=== PATIENT | female | born 1935 | race Caucasian/White ===

== ENCOUNTER 2016-05-01 10:58 | Emergency (ER) | payer OTHER ==
[~2016-05-01] VITALS: Ht 157.5 cm; Wt 68.0 kg
[~2016-05-01 10:58] MED LIST: FURO20TA3 PO; LIS10T PO; LOR05T PO; MET50T PO; OMEP20CA5 PO; THYR120T PO; WARF2TAB49 PO
[2016-05-01 11:39] LABS: Basophils # (auto) 0 uL; Basophils % (auto) 0.5 % (0.0-2.0); Eosinophils # (auto) 0.1 uL; Eosinophils % (auto) 2.7 % (0.0-7.0); Hematocrit 37.5 % (36.0-46.0); Hemoglobin 12.1 g/dL (12.2-16.2); Lymphocytes # (auto) 0.9 uL; Lymphocytes % (auto) 24.9 % (10.0-50.0); Mean Corpuscular Hemoglobin 29.5 pg (28.0-32.0); Mean Corpuscular Hgb Conc. 32.1 g/dL (32.0-36.0); Mean Corpuscular Volume 91.9 fL (80.0-100.0); Mean Platelet Volume 8.4 fL (7.4-10.4); Monocytes # (auto) 0.3 uL; Monocytes % (auto) 7.7 % (0.0-12.0); Neutrophils # (auto) 2.4 uL; Neutrophils % (auto) 64.2 % (37.0-80.0); Platelet Count (auto) 113 10^3/uL (140-450); Red Cell Distribution Width 14.2 % (11.6-16.0); White Blood Cell 3.7 10^3/uL (4.4-10.8)
[2016-05-01 11:45] LABS: Albumin 3.6 g/dL (3.4-5.0); BUN/Creatinine Ratio 45.3; Bilirubin, Total 0.4 mg/dL (0.2-1.0); Magnesium 2.3 mg/dL (1.6-2.6); Potassium 4.6 mmol/L (3.5-5.1); Total Protein 6.8 g/dL (6.4-8.2)
[2016-05-01 12:59] LABS: Partial Thromboplastin Time 30.1 sec (22.64-33.71)
[2016-05-01 13:08] LABS: INR 1.71 (0.9-1.15); Prothrombin Time 17.6 sec (9.37-12.3)
[2016-05-01 14:27] LABS: Urine Bilirubin Negative (Negative); Urine Blood Negative /uL (Negative); Urine Color Yellow (Yellow); Urine Glucose Normal (Normal); Urine Ketone Negative (Negative); Urine Mucus FEW (None Seen); Urine Nitrite Negative (Negative); Urine RBC 2 /hpf (0 - 4); Urine Squamous Epithelial Cell FEW /hpf (<5); Urine Urobilinogen Normal (Negative); Urine pH 6.5 (5.0-8.0)
[2016-05-01 16:38] VITALS: BP 110/57
== END 2016-05-01 17:03 | disposition short-term general hospital (02) ==
LOC: EDUNIT# 10:58 → ER 11:00
DX: T82.118A Breakdown (mechanical) of other cardiac electronic device, initial encounter (principal); R07.89 Other chest pain; I11.9 Hypertensive heart disease without heart failure; I50.9 Heart failure, unspecified; I48.91 Unspecified atrial fibrillation; K21.9 Gastro-esophageal reflux disease without esophagitis; E78.5 Hyperlipidemia, unspecified; Z86.73 Personal history of transient ischemic attack (TIA), and cerebral infarction without residual deficits; E07.9 Disorder of thyroid, unspecified; Z95.1 Presence of aortocoronary bypass graft; Z90.49 Acquired absence of other specified parts of digestive tract; Z90.89 Acquired absence of other organs; Z98.890 Other specified postprocedural states; Z90.710 Acquired absence of both cervix and uterus; Z98.61 Coronary angioplasty status; Z88.6 Allergy status to analgesic agent; Z88.3 Allergy status to other anti-infective agents; X58.XXXA Exposure to other specified factors, initial encounter; Y93.89 Activity, other specified; Y99.8 Other external cause status; Y92.89 Other specified places as the place of occurrence of the external cause
CPT/HCPCS: 36415; 70450; 71020; 80053; 81001; 83735; 84484; 85025; 85049; 85610; 85730; 93005; 94761

== ENCOUNTER 2016-05-15 04:29 | Emergency (ER) | payer OTHER ==
[~2016-05-15] VITALS: Ht 157.5 cm; Wt 70.3 kg
[2016-05-15 06:17] LABS: Basophils # (auto) 0 uL; Basophils % (auto) 0.3 % (0.0-2.0); Eosinophils # (auto) 0.1 uL; Eosinophils % (auto) 2.2 % (0.0-7.0); Hematocrit 34.4 % (36.0-46.0); Hemoglobin 10.9 g/dL (12.2-16.2); Lymphocytes # (auto) 0.9 uL; Lymphocytes % (auto) 21.1 % (10.0-50.0); Mean Corpuscular Hgb Conc. 31.7 g/dL (32.0-36.0); Mean Corpuscular Volume 91.6 fL (80.0-100.0); Mean Platelet Volume 8.9 fL (7.4-10.4); Monocytes # (auto) 0.3 uL; Monocytes % (auto) 6.5 % (0.0-12.0); Neutrophils # (auto) 3.1 uL; Neutrophils % (auto) 69.9 % (37.0-80.0); Platelet Count (auto) 128 10^3/uL (140-450); Red Cell Distribution Width 14.1 % (11.6-16.0); White Blood Cell 4.5 10^3/uL (4.4-10.8)
[2016-05-15 06:31] LABS: BUN/Creatinine Ratio 28.1; Calcium 8.7 mg/dL (8.5-10.1); Potassium 4.1 mmol/L (3.5-5.1)
[2016-05-15] MEDS ORDERED: SODIUM CHLORIDE 0.9% 1,000 ML IV ONE (06:33)
[2016-05-15 06:41] LABS: Partial Thromboplastin Time 34.7 sec (22.64-33.71)
[2016-05-15 06:49] LABS: INR 2.31 (0.9-1.15); Prothrombin Time 23.8 sec (9.37-12.3)
[2016-05-15 13:17] VITALS: BP 131/75
== END 2016-05-15 13:54 | disposition home or self-care (01) ==
LOC: ER 04:35
DX: R11.10 Vomiting, unspecified (principal); I48.91 Unspecified atrial fibrillation; R00.2 Palpitations; I25.810 Atherosclerosis of coronary artery bypass graft(s) without angina pectoris; I25.2 Old myocardial infarction; J44.9 Chronic obstructive pulmonary disease, unspecified; K21.9 Gastro-esophageal reflux disease without esophagitis; E78.5 Hyperlipidemia, unspecified; I13.0 Hypertensive heart and chronic kidney disease with heart failure and stage 1 through stage 4 chronic kidney disease, or unspecified chronic kidney disease; N18.9 Chronic kidney disease, unspecified; I50.9 Heart failure, unspecified; Z95.1 Presence of aortocoronary bypass graft; Z98.61 Coronary angioplasty status; Z95.0 Presence of cardiac pacemaker; Z79.899 Other long term (current) drug therapy; Z79.01 Long term (current) use of anticoagulants; Z88.6 Allergy status to analgesic agent; Z88.8 Allergy status to other drugs, medicaments and biological substances
CPT/HCPCS: 36415; 71010; 80048; 81002; 83735; 84443; 84484; 85025; 85610; 85730; 93005; 94761; 96360; 96361; 99285; J7030

== ENCOUNTER 2016-06-24 06:40 | Emergency (ER) | payer OTHER ==
[~2016-06-24] VITALS: Ht 157.5 cm; Wt 71.7 kg
[2016-06-24 07:51] LABS: Basophils # (auto) 0 uL; Basophils % (auto) 0.6 % (0.0-2.0); Eosinophils # (auto) 0.1 uL; Hematocrit 34.6 % (36.0-46.0); Hemoglobin 11.6 g/dL (12.2-16.2); Lymphocytes # (auto) 0.9 uL; Lymphocytes % (auto) 23.1 % (10.0-50.0); Mean Corpuscular Hemoglobin 30.2 pg (28.0-32.0); Mean Corpuscular Hgb Conc. 33.4 g/dL (32.0-36.0); Mean Corpuscular Volume 90.4 fL (80.0-100.0); Mean Platelet Volume 8.6 fL (7.4-10.4); Monocytes # (auto) 0.3 uL; Monocytes % (auto) 7.9 % (0.0-12.0); Neutrophils # (auto) 2.4 uL; Neutrophils % (auto) 65.4 % (37.0-80.0); Platelet Count (auto) 121 10^3/uL (140-450); Red Cell Distribution Width 15.2 % (11.6-16.0); White Blood Cell 3.7 10^3/uL (4.4-10.8)
[2016-06-24 08:04] LABS: Albumin 3.6 g/dL (3.4-5.0); Anion Gap 9 (5-15); Aspartate Aminotransferase 19 U/L (15-37); BUN/Creatinine Ratio 38.2; Blood Urea Nitrogen 29 mg/dL (7-18); Calcium 8.8 mg/dL (8.5-10.1); Carbon Dioxide 26 mmol/L (21-32); Chloride 109 mmol/L (98-107); GFR African American 94 mL/min; GFR Non-African American 78 mL/min; Glucose 104 mg/dL (74-106); Magnesium 2.1 mg/dL (1.6-2.6); Potassium 3.9 mmol/L (3.5-5.1); Sodium 144 mmol/L (136-145)
[2016-06-24 08:09] LABS: Alkaline Phosphatase 46 U/L (45-117); Bilirubin, Total 0.5 mg/dL (0.2-1.0); Total Protein 6.7 g/dL (6.4-8.2)
[2016-06-24] MEDS ORDERED: METOPROLOL TARTRATE 1MG/1ML-5ML VIAL IV ONE (14:30)
[2016-06-24 14:59] LABS: Basophils # (auto) 0 uL; Basophils % (auto) 0.4 % (0.0-2.0); Eosinophils # (auto) 0.1 uL; Eosinophils % (auto) 2.1 % (0.0-7.0); Hemoglobin 12.5 g/dL (12.2-16.2); Lymphocytes # (auto) 1.2 uL; Lymphocytes % (auto) 27.1 % (10.0-50.0); Mean Corpuscular Hgb Conc. 32.8 g/dL (32.0-36.0); Mean Corpuscular Volume 91.4 fL (80.0-100.0); Mean Platelet Volume 8.5 fL (7.4-10.4); Monocytes # (auto) 0.3 uL; Monocytes % (auto) 6.9 % (0.0-12.0); Neutrophils # (auto) 2.7 uL; Neutrophils % (auto) 63.5 % (37.0-80.0); Platelet Count (auto) 130 10^3/uL (140-450); Red Cell Distribution Width 15.4 % (11.6-16.0); White Blood Cell 4.3 10^3/uL (4.4-10.8)
[2016-06-24 15:10] LABS: Chloride 107 mmol/L (98-107); Partial Thromboplastin Time 34.3 sec (22.64-33.71); Potassium 3.7 mmol/L (3.5-5.1); Sodium 139 mmol/L (136-145)
[2016-06-24 15:14] LABS: Anion Gap 4 (5-15); Aspartate Aminotransferase 16 U/L (15-37); BUN/Creatinine Ratio 34.3; Blood Urea Nitrogen 23 mg/dL (7-18); Calcium 8.9 mg/dL (8.5-10.1); Carbon Dioxide 28 mmol/L (21-32); GFR African American 109 mL/min; GFR Non-African American 90 mL/min; Glucose 122 mg/dL (74-106); Magnesium 2.1 mg/dL (1.6-2.6)
[2016-06-24 15:20] LABS: Alkaline Phosphatase 52 U/L (45-117); Bilirubin, Total 0.7 mg/dL (0.2-1.0); Total Protein 7.5 g/dL (6.4-8.2)
[2016-06-24 15:56] LABS: INR 2.51 (0.9-1.15); Prothrombin Time 25.9 sec (9.37-12.3)
[2016-06-24 16:16] VITALS: BP 114/72
[2016-06-24 17:02] LABS: B-Type Natriuretic Peptide 391.44 pg/mL (0-100)
== END 2016-06-24 17:20 | disposition home or self-care (01) ==
LOC: ER 06:40
DX: I48.2 Chronic atrial fibrillation (principal); I25.810 Atherosclerosis of coronary artery bypass graft(s) without angina pectoris; Z95.1 Presence of aortocoronary bypass graft; I11.0 Hypertensive heart disease with heart failure; I50.9 Heart failure, unspecified; J44.9 Chronic obstructive pulmonary disease, unspecified; K21.9 Gastro-esophageal reflux disease without esophagitis; E78.5 Hyperlipidemia, unspecified; I25.2 Old myocardial infarction; E07.9 Disorder of thyroid, unspecified; Z90.49 Acquired absence of other specified parts of digestive tract; Z90.710 Acquired absence of both cervix and uterus; Z95.0 Presence of cardiac pacemaker; Z98.61 Coronary angioplasty status; Z88.6 Allergy status to analgesic agent; Z88.8 Allergy status to other drugs, medicaments and biological substances; R53.83 Other fatigue
CPT/HCPCS: 36415; 71010; 71020; 80053; 80162; 83735; 83880; 84443; 84484; 85025; 85610; 85730; 93005; 96374

== ENCOUNTER 2016-07-04 09:01 | Emergency (ER) | payer OTHER ==
[~2016-07-04] VITALS: Ht 165.1 cm; Wt 63.5 kg
[2016-07-04] MEDS ORDERED: SODIUM CHLORIDE 0.9% 500 ML IVB ONE (09:19)
[2016-07-04 10:11] LABS: Albumin 3.5 g/dL (3.4-5.0); Alkaline Phosphatase 43 U/L (45-117); Anion Gap 9 (5-15); Aspartate Aminotransferase 18 U/L (15-37); BUN/Creatinine Ratio 35.6; Bilirubin, Total 0.5 mg/dL (0.2-1.0); Blood Urea Nitrogen 26 mg/dL (7-18); Calcium 8.8 mg/dL (8.5-10.1); Carbon Dioxide 29 mmol/L (21-32); Chloride 110 mmol/L (98-107); GFR African American 98 mL/min; GFR Non-African American 81 mL/min; Glucose 96 mg/dL (74-106); Potassium 3.8 mmol/L (3.5-5.1); Sodium 148 mmol/L (136-145); Total Protein 6.4 g/dL (6.4-8.2)
[2016-07-04 10:13] LABS: Basophils # (auto) 0 uL; Basophils % (auto) 0.5 % (0.0-2.0); Eosinophils # (auto) 0.1 uL; Eosinophils % (auto) 1.8 % (0.0-7.0); Hematocrit 34.4 % (36.0-46.0); Hemoglobin 11.3 g/dL (12.2-16.2); Lymphocytes # (auto) 0.8 uL; Lymphocytes % (auto) 22.2 % (10.0-50.0); Mean Corpuscular Hgb Conc. 32.9 g/dL (32.0-36.0); Mean Platelet Volume 8.7 fL (7.4-10.4); Monocytes # (auto) 0.3 uL; Neutrophils # (auto) 2.4 uL; Neutrophils % (auto) 66.5 % (37.0-80.0); Platelet Count (auto) 106 10^3/uL (140-450); Red Cell Distribution Width 15.1 % (11.6-16.0); White Blood Cell 3.6 10^3/uL (4.4-10.8)
[2016-07-04 10:25] LABS: Partial Thromboplastin Time 29.6 sec (22.64-33.71)
[2016-07-04 10:29] LABS: INR 1.82 (0.9-1.15); Prothrombin Time 18.7 sec (9.37-12.3)
[2016-07-04 11:02] LABS: Urine Bilirubin Negative (Negative); Urine Blood Negative /uL (Negative); Urine Color Yellow (Yellow); Urine Glucose Normal (Normal); Urine Ketone Negative (Negative); Urine Nitrite Negative (Negative); Urine RBC <1 /hpf (0 - 4); Urine Urobilinogen Normal (Negative); Urine pH 6.5 (5.0-8.0)
[2016-07-04 12:20] VITALS: BP 113/50
== END 2016-07-04 12:42 | disposition home or self-care (01) ==
LOC: EDBD 09:01 → ER 09:05
DX: R41.82 Altered mental status, unspecified (principal); N39.0 Urinary tract infection, site not specified; R11.0 Nausea; Z88.8 Allergy status to other drugs, medicaments and biological substances; I48.91 Unspecified atrial fibrillation; I25.810 Atherosclerosis of coronary artery bypass graft(s) without angina pectoris; I11.0 Hypertensive heart disease with heart failure; I50.9 Heart failure, unspecified; J44.9 Chronic obstructive pulmonary disease, unspecified; K21.9 Gastro-esophageal reflux disease without esophagitis; E78.5 Hyperlipidemia, unspecified; I25.2 Old myocardial infarction; E07.9 Disorder of thyroid, unspecified; Z95.0 Presence of cardiac pacemaker; Z87.442 Personal history of urinary calculi; Z95.1 Presence of aortocoronary bypass graft; Z90.710 Acquired absence of both cervix and uterus; Z98.61 Coronary angioplasty status
CPT/HCPCS: 36415; 70450; 71010; 80053; 81001; 83735; 84484; 85025; 85610; 85730; 93005; 94761; 96360; 99285; J7040

== ENCOUNTER 2016-07-06 06:04 | Observation (INO) | payer OTHER ==
[~2016-07-06] VITALS: Ht 172.7 cm; Wt 83.9 kg
[2016-07-06 07:02] LABS: Basophils # (auto) 0 uL; Basophils % (auto) 0.4 % (0.0-2.0); Eosinophils # (auto) 0.1 uL; Eosinophils % (auto) 2.1 % (0.0-7.0); Hematocrit 35.8 % (36.0-46.0); Lymphocytes # (auto) 0.6 uL; Lymphocytes % (auto) 21.2 % (10.0-50.0); Mean Corpuscular Hemoglobin 30.1 pg (28.0-32.0); Mean Corpuscular Hgb Conc. 33.5 g/dL (32.0-36.0); Mean Corpuscular Volume 89.9 fL (80.0-100.0); Mean Platelet Volume 8.5 fL (7.4-10.4); Monocytes # (auto) 0.3 uL; Monocytes % (auto) 11.4 % (0.0-12.0); Neutrophils # (auto) 1.9 uL; Neutrophils % (auto) 64.9 % (37.0-80.0); Platelet Count (auto) 98 10^3/uL (140-450); Red Cell Distribution Width 14.7 % (11.6-16.0); White Blood Cell 2.9 10^3/uL (4.4-10.8)
[2016-07-06] MEDS: NITROGLYCERIN 0.4 MG SL TAB SL PRN ×2 (07:04→07:55)
[2016-07-06 07:21] LABS: INR 1.93 (0.9-1.15); Prothrombin Time 19.9 sec (9.37-12.3)
[2016-07-06 07:23] LABS: Albumin 3.6 g/dL (3.4-5.0); BUN/Creatinine Ratio 20.5; Bilirubin, Total 0.6 mg/dL (0.2-1.0); Calcium 8.9 mg/dL (8.5-10.1); Magnesium 1.9 mg/dL (1.6-2.6); Potassium 4.1 mmol/L (3.5-5.1); Total Protein 6.8 g/dL (6.4-8.2)
[2016-07-06] MEDS ORDERED: SODIUM CHLORIDE 0.9% 1,000 ML IV ONE (07:23)
[2016-07-06] MEDS ORDERED: MORPHINE SULF INJ 2 MG/ML SYRINGE 1ML IV ONE (07:30)
[2016-07-06] MEDS ORDERED: ONDANSETRON HCL 4 MG/2 ML VIAL ONE (07:43)
[2016-07-06] MEDS ORDERED: ONDANSETRON HCL 4 MG/2 ML VIAL IV ONE (08:30)
[2016-07-06 12:42] VITALS: BP 106/75
== END 2016-07-06 12:56 | disposition short-term general hospital (02) | DRG 303 ==
LOC: ER 06:07 → OVERFLOW 07:25 → ER 12:56
PROVIDERS: ADMIT Emergency Medicine; ATTEND Emergency Medicine
DX: I25.119 Atherosclerotic heart disease of native coronary artery with unspecified angina pectoris (principal); I48.91 Unspecified atrial fibrillation; I49.3 Ventricular premature depolarization; I25.2 Old myocardial infarction; J44.9 Chronic obstructive pulmonary disease, unspecified; Z87.442 Personal history of urinary calculi; K21.9 Gastro-esophageal reflux disease without esophagitis; I50.9 Heart failure, unspecified; I11.0 Hypertensive heart disease with heart failure; Z79.899 Other long term (current) drug therapy; Z79.01 Long term (current) use of anticoagulants
CPT/HCPCS: 36415; 71010; 80053; 83735; 84443; 84484; 85025; 85610; 85730; 93005; 96361; 96374; 96375; 99285; G0378; J2270; J2405

== ENCOUNTER 2016-09-01 20:23 | Emergency (ER) | payer OTHER ==
[~2016-09-01] VITALS: Ht 157.5 cm; Wt 68.9 kg
[2016-09-01 21:34] LABS: Basophils # (auto) 0 uL; Basophils % (auto) 0.5 % (0.0-2.0); Eosinophils # (auto) 0.2 uL; Hematocrit 37.7 % (36.0-46.0); Hemoglobin 12.7 g/dL (12.2-16.2); Lymphocytes % (auto) 23.2 % (10.0-50.0); Mean Corpuscular Hemoglobin 30.2 pg (28.0-32.0); Mean Corpuscular Hgb Conc. 33.7 g/dL (32.0-36.0); Mean Corpuscular Volume 89.8 fL (80.0-100.0); Mean Platelet Volume 8.6 fL (7.4-10.4); Monocytes # (auto) 0.4 uL; Monocytes % (auto) 8.4 % (0.0-12.0); Neutrophils # (auto) 2.8 uL; Neutrophils % (auto) 63.9 % (37.0-80.0); Platelet Count (auto) 128 10^3/uL (140-450); Red Cell Distribution Width 15.1 % (11.6-16.0); White Blood Cell 4.4 10^3/uL (4.4-10.8)
[2016-09-01 21:37] LABS: Urine Hyaline Cast FEW /lpf (0 - 2); Urine RBC <1 /hpf (0 - 4)
[2016-09-01 21:38] LABS: Urine Color Yellow (Yellow)
[2016-09-01 21:40] LABS: Urine Bilirubin Negative (Negative); Urine Glucose Normal (Normal); Urine Urobilinogen Normal (Negative)
[2016-09-01 21:41] LABS: Urine Blood Negative /uL (Negative); Urine Ketone Negative (Negative); Urine Nitrite Negative (Negative)
[2016-09-01 21:55] LABS: Albumin 3.5 g/dL (3.4-5.0); Amylase 45 U/L (25-115); Anion Gap 10 (5-15); Blood Urea Nitrogen 21 mg/dL (7-18); Calcium 8.9 mg/dL (8.5-10.1); Carbon Dioxide 26 mmol/L (21-32); Chloride 108 mmol/L (98-107); Glucose 108 mg/dL (74-106); Magnesium 1.8 mg/dL (1.6-2.6); Potassium 3.8 mmol/L (3.5-5.1); Sodium 144 mmol/L (136-145)
[2016-09-01 21:56] LABS: INR 2.03 (0.9-1.15); Prothrombin Time 22.3 sec (9.37-12.3)
[2016-09-01 21:57] LABS: Aspartate Aminotransferase 20 U/L (15-37); BUN/Creatinine Ratio 25.3; GFR African American 85 mL/min; GFR Non-African American 70 mL/min
[2016-09-01 22:07] LABS: Alkaline Phosphatase 51 U/L (45-117); Bilirubin, Total 0.5 mg/dL (0.2-1.0)
[2016-09-01 22:13] LABS: B-Type Natriuretic Peptide 384.4 pg/mL (0-100); Temperature: 21.8 C (20.0-25.0)
[2016-09-02] MEDS ORDERED: FUROSEMIDE 20 MG/2 ML VIAL IV ONE (02:15)
[2016-09-02 06:20] VITALS: BP 113/66
== END 2016-09-02 12:33 | disposition short-term general hospital (02) ==
LOC: ER 20:34
DX: I11.0 Hypertensive heart disease with heart failure (principal); I50.9 Heart failure, unspecified; R10.9 Unspecified abdominal pain; J44.9 Chronic obstructive pulmonary disease, unspecified; K21.9 Gastro-esophageal reflux disease without esophagitis; E78.5 Hyperlipidemia, unspecified; I25.2 Old myocardial infarction; E07.89 Other specified disorders of thyroid; I48.91 Unspecified atrial fibrillation; Z95.1 Presence of aortocoronary bypass graft; Z90.49 Acquired absence of other specified parts of digestive tract; Z90.710 Acquired absence of both cervix and uterus; Z98.61 Coronary angioplasty status; Z95.0 Presence of cardiac pacemaker; Z88.6 Allergy status to analgesic agent; Z91.041 Radiographic dye allergy status; Z88.8 Allergy status to other drugs, medicaments and biological substances
CPT/HCPCS: 36415; 70450; 71010; 74176; 80053; 81001; 82150; 83690; 83735; 83880; 84484; 85025; 85610; 85730; 93005; 94761; 96374; 99285; J1940

== ENCOUNTER 2016-09-22 17:11 | Emergency (ER) | payer OTHER ==
[~2016-09-22] VITALS: Ht 157.5 cm; Wt 67.1 kg
[~2016-09-22 17:11] MED LIST changes: -OMEP20CA5 PO; +OMEP20CA74 PO
[2016-09-22 17:54] LABS: Basophils # (auto) 0 uL; Basophils % (auto) 0.3 % (0.0-2.0); Eosinophils # (auto) 0.1 uL; Hematocrit 36.6 % (36.0-46.0); Hemoglobin 12.3 g/dL (12.2-16.2); Lymphocytes # (auto) 0.8 uL; Lymphocytes % (auto) 22.5 % (10.0-50.0); Mean Corpuscular Hgb Conc. 33.6 g/dL (32.0-36.0); Mean Corpuscular Volume 89.5 fL (80.0-100.0); Mean Platelet Volume 8.3 fL (7.4-10.4); Monocytes # (auto) 0.3 uL; Monocytes % (auto) 8.7 % (0.0-12.0); Neutrophils # (auto) 2.4 uL; Neutrophils % (auto) 65.5 % (37.0-80.0); Platelet Count (auto) 139 10^3/uL (140-450); Red Cell Distribution Width 15.2 % (11.6-16.0); White Blood Cell 3.7 10^3/uL (4.4-10.8)
[2016-09-22 18:16] LABS: Partial Thromboplastin Time 53.4 sec (22.64-33.71)
[2016-09-22 18:33] LABS: Albumin 3.6 g/dL (3.4-5.0); Calcium 8.7 mg/dL (8.5-10.1)
[2016-09-22 18:40] LABS: Bilirubin, Total 0.4 mg/dL (0.2-1.0); Total Protein 7.3 g/dL (6.4-8.2)
[2016-09-22 19:13] LABS: Prothrombin Time 91.7 sec (9.37-12.3)
[2016-09-22 19:21] LABS: INR 8.24 (0.9-1.15)
[2016-09-22 20:06] VITALS: BP 110/84
[2016-09-22] MEDS ORDERED: PHYTONADIONE (VIT K)10 MG/ML 1ML VIAL SUBCUT ONE (20:15)
[2016-09-22 20:18] LABS: Urine Bilirubin Negative (Negative); Urine Blood Negative /uL (Negative); Urine Color Yellow (Yellow); Urine Glucose Normal (Normal); Urine Hyaline Cast FEW /lpf (0 - 2); Urine Ketone Negative (Negative); Urine Nitrite Negative (Negative); Urine RBC 1 /hpf (0 - 4); Urine Squamous Epithelial Cell FEW /hpf (<5); Urine Urobilinogen Normal (Negative)
== END 2016-09-22 20:25 | disposition home or self-care (01) ==
LOC: ER 17:18
DX: T45.511A Poisoning by anticoagulants, accidental (unintentional), initial encounter (principal); R79.89 Other specified abnormal findings of blood chemistry; Z87.442 Personal history of urinary calculi; K21.9 Gastro-esophageal reflux disease without esophagitis; J44.9 Chronic obstructive pulmonary disease, unspecified; I50.9 Heart failure, unspecified; I11.0 Hypertensive heart disease with heart failure; I25.810 Atherosclerosis of coronary artery bypass graft(s) without angina pectoris; I48.91 Unspecified atrial fibrillation; I25.2 Old myocardial infarction; E78.5 Hyperlipidemia, unspecified; Z95.5 Presence of coronary angioplasty implant and graft; Z95.0 Presence of cardiac pacemaker; Z90.710 Acquired absence of both cervix and uterus; Z88.6 Allergy status to analgesic agent; Z88.8 Allergy status to other drugs, medicaments and biological substances
CPT/HCPCS: 36415; 80053; 81001; 85025; 85610; 85730; 93005; 96372; J3430

== ENCOUNTER 2016-09-26 06:46 | Emergency (ER) | payer OTHER ==
[~2016-09-26] VITALS: Ht 154.9 cm; Wt 77.1 kg
[2016-09-26 07:40] LABS: Basophils # (auto) 0 uL; Basophils % (auto) 0.6 % (0.0-2.0); CONDITION Y; Eosinophils # (auto) 0.1 uL; Eosinophils % (auto) 4.6 % (0.0-7.0); Hematocrit 34.9 % (36.0-46.0); Hemoglobin 11.7 g/dL (12.2-16.2); Lymphocytes # (auto) 0.6 uL; Lymphocytes % (auto) 22.3 % (10.0-50.0); Mean Corpuscular Hgb Conc. 33.6 g/dL (32.0-36.0); Mean Corpuscular Volume 89.1 fL (80.0-100.0); Mean Platelet Volume 8.5 fL (7.4-10.4); Monocytes # (auto) 0.2 uL; Monocytes % (auto) 8.6 % (0.0-12.0); Neutrophils # (auto) 1.8 uL; Neutrophils % (auto) 63.9 % (37.0-80.0); Platelet Count (auto) 127 10^3/uL (140-450); Red Cell Distribution Width 15.2 % (11.6-16.0); White Blood Cell 2.9 10^3/uL (4.4-10.8)
[2016-09-26 08:05] LABS: Albumin 3.6 g/dL (3.4-5.0); Anion Gap 10 (5-15); BUN/Creatinine Ratio 23.6; Blood Urea Nitrogen 17 mg/dL (7-18); Calcium 8.7 mg/dL (8.5-10.1); Carbon Dioxide 26 mmol/L (21-32); Chloride 107 mmol/L (98-107); GFR African American 100 mL/min; GFR Non-African American 83 mL/min; Glucose 102 mg/dL (74-106); Magnesium 1.7 mg/dL (1.6-2.6); Potassium 3.7 mmol/L (3.5-5.1); Sodium 143 mmol/L (136-145)
[2016-09-26 08:14] LABS: Alkaline Phosphatase 37 U/L (45-117); Aspartate Aminotransferase 25 U/L (15-37); Bilirubin, Total 0.4 mg/dL (0.2-1.0); Total Protein 6.7 g/dL (6.4-8.2)
[2016-09-26] MEDS ORDERED: MORPHINE SULF INJ 2 MG/ML SYRINGE 1ML IV ONE (08:45)
[2016-09-26] MEDS ORDERED: ONDANSETRON HCL 4 MG/2 ML VIAL IV ONE (08:45)
[2016-09-26 08:47] LABS: B-Type Natriuretic Peptide 222.44 pg/mL (0-100)
[2016-09-26 08:57] LABS: Temperature: 23.7 C (20.0-25.0)
[2016-09-26] MEDS ORDERED: ASPirin 81 mg TAB PO ONE (09:00)
[2016-09-26 09:25] LABS: INR 1.18 (0.9-1.15); Prothrombin Time 12.9 sec (9.37-12.3)
[2016-09-26 12:29] VITALS: BP 139/74
== END 2016-09-26 12:44 | disposition short-term general hospital (02) ==
LOC: ER 06:46
DX: R07.9 Chest pain, unspecified (principal); M79.602 Pain in left arm; R11.0 Nausea; I48.91 Unspecified atrial fibrillation; I25.2 Old myocardial infarction; I11.0 Hypertensive heart disease with heart failure; I50.9 Heart failure, unspecified; J44.9 Chronic obstructive pulmonary disease, unspecified; K21.9 Gastro-esophageal reflux disease without esophagitis; E78.5 Hyperlipidemia, unspecified; E07.9 Disorder of thyroid, unspecified; I25.810 Atherosclerosis of coronary artery bypass graft(s) without angina pectoris; Z87.442 Personal history of urinary calculi; Z95.0 Presence of cardiac pacemaker; Z90.710 Acquired absence of both cervix and uterus; Z88.8 Allergy status to other drugs, medicaments and biological substances; Z79.899 Other long term (current) drug therapy; Z95.1 Presence of aortocoronary bypass graft
CPT/HCPCS: 36415; 71010; 80053; 83735; 83880; 84484; 85025; 85610; 93005; 96374; 96375; 99285; J2270; J2405

== ENCOUNTER 2016-09-27 04:09 | Emergency (ER) | payer OTHER ==
[~2016-09-27] VITALS: Ht 157.5 cm; Wt 66.7 kg
[2016-09-27 04:46] LABS: Basophils # (auto) 0 uL; Basophils % (auto) 0.3 % (0.0-2.0); CONDITION AutoValidated; Eosinophils # (auto) 0.1 uL; Hematocrit 37.9 % (36.0-46.0); Hemoglobin 12.5 g/dL (12.2-16.2); Lymphocytes # (auto) 0.7 uL; Lymphocytes % (auto) 22.4 % (10.0-50.0); Mean Corpuscular Hemoglobin 29.7 pg (28.0-32.0); Mean Corpuscular Hgb Conc. 33.1 g/dL (32.0-36.0); Mean Corpuscular Volume 89.8 fL (80.0-100.0); Mean Platelet Volume 8.4 fL (7.4-10.4); Monocytes # (auto) 0.3 uL; Monocytes % (auto) 9.7 % (0.0-12.0); Neutrophils % (auto) 63.6 % (37.0-80.0); Platelet Count (auto) 138 10^3/uL (140-450); Red Cell Distribution Width 15.4 % (11.6-16.0); White Blood Cell 3.2 10^3/uL (4.4-10.8)
[2016-09-27 05:06] LABS: Albumin 3.6 g/dL (3.4-5.0); BUN/Creatinine Ratio 21.8; Bilirubin, Total 0.6 mg/dL (0.2-1.0); Calcium 8.7 mg/dL (8.5-10.1); Magnesium 1.8 mg/dL (1.6-2.6); Potassium 3.6 mmol/L (3.5-5.1); Total Protein 6.8 g/dL (6.4-8.2)
[2016-09-27 05:11] LABS: B-Type Natriuretic Peptide 358.44 pg/mL (0-100)
[2016-09-27 05:17] LABS: Temperature: 22.9 C (20.0-25.0)
[2016-09-27] MEDS ORDERED: ASPirin 81 mg TAB PO ONE (05:45)
[2016-09-27] MEDS ORDERED: ASPirin 81 mg TAB ONE (05:53)
[2016-09-27 06:43] LABS: Urine Bilirubin Negative (Negative); Urine Blood Negative /uL (Negative); Urine Ca Oxalate Crystal MANY (None Seen); Urine Color Yellow (Yellow); Urine Glucose Normal (Normal); Urine Mucus FEW (None Seen); Urine Nitrite Negative (Negative); Urine RBC 2 /hpf (0 - 4); Urine Squamous Epithelial Cell FEW /hpf (<5); Urine Urobilinogen Normal (Negative); Urine pH 5.5 (5.0-8.0)
[2016-09-27 06:44] LABS: Urine Ketone 1+ (Negative)
[2016-09-27 08:09] VITALS: BP 118/72
== END 2016-09-27 08:28 | disposition short-term general hospital (02) ==
LOC: ER 04:09
DX: I48.91 Unspecified atrial fibrillation (principal); R07.89 Other chest pain; I11.0 Hypertensive heart disease with heart failure; I50.9 Heart failure, unspecified; E07.89 Other specified disorders of thyroid; I25.10 Atherosclerotic heart disease of native coronary artery without angina pectoris; E78.5 Hyperlipidemia, unspecified; I25.2 Old myocardial infarction; Z95.1 Presence of aortocoronary bypass graft; Z90.710 Acquired absence of both cervix and uterus; Z98.61 Coronary angioplasty status; Z88.0 Allergy status to penicillin; Z88.6 Allergy status to analgesic agent; Z79.899 Other long term (current) drug therapy; Z98.890 Other specified postprocedural states
CPT/HCPCS: 36415; 71010; 80053; 81001; 83735; 83880; 84484; 85025; 93005; 94761

== ENCOUNTER 2016-11-18 01:33 | Emergency (ER) | payer OTHER ==
[~2016-11-18] VITALS: Ht 157.5 cm; Wt 68.0 kg
[2016-11-18 01:40] VITALS: BP 132/79
[2016-11-18 04:17] LABS: INR 2.84 (0.9-1.15); Partial Thromboplastin Time 36.2 sec (22.64-33.71)
[2016-11-18 04:25] LABS: Prothrombin Time 31.3 sec (9.37-12.3)
== END 2016-11-18 04:41 | disposition home or self-care (01) ==
LOC: ER 01:35
DX: I11.0 Hypertensive heart disease with heart failure (principal); I50.9 Heart failure, unspecified; J44.9 Chronic obstructive pulmonary disease, unspecified; E78.5 Hyperlipidemia, unspecified; E07.89 Other specified disorders of thyroid; I25.2 Old myocardial infarction; I48.91 Unspecified atrial fibrillation; Z95.1 Presence of aortocoronary bypass graft; Z90.710 Acquired absence of both cervix and uterus; Z95.0 Presence of cardiac pacemaker; Z88.6 Allergy status to analgesic agent; Z88.8 Allergy status to other drugs, medicaments and biological substances
CPT/HCPCS: 36415; 85610; 85730

== ENCOUNTER 2017-02-08 00:30 | Emergency (ER) | payer OTHER ==
[~2017-02-08] VITALS: Ht 157.5 cm; Wt 66.7 kg
[~2017-02-08 00:30] MED LIST changes: -LOR05T PO; +LORA-654 PO
[2017-02-08 04:44] LABS: Basophils # (auto) 0 uL; Basophils % (auto) 0.6 % (0.0-2.0); Eosinophils # (auto) 0.1 uL; Eosinophils % (auto) 2.5 % (0.0-7.0); Hemoglobin 11.8 g/dL (12.2-16.2); Lymphocytes # (auto) 1.1 uL; Lymphocytes % (auto) 27.8 % (10.0-50.0); Mean Corpuscular Hemoglobin 31.1 pg (28.0-32.0); Mean Corpuscular Hgb Conc. 33.6 g/dL (32.0-36.0); Mean Corpuscular Volume 92.4 fL (80.0-100.0); Monocytes # (auto) 0.4 uL; Monocytes % (auto) 9.6 % (0.0-12.0); Neutrophils # (auto) 2.3 uL; Neutrophils % (auto) 59.5 % (37.0-80.0); Nucleated Red Blood Cells % 0.1 %; Platelet Count (auto) 91 10^3/uL (140-450); Red Blood Cells 3.79 10^6/uL (4.0-5.20); Red Cell Distribution Width 14.7 % (11.8-14.3); White Blood Cell 3.9 10^3/uL (4.4-10.8)
[2017-02-08 05:01] LABS: INR 3.7 (0.9-1.15); Partial Thromboplastin Time 38.3 sec (22.64-33.71); Prothrombin Time 40.9 sec (9.37-12.3)
[2017-02-08 05:04] LABS: Alanine Aminotransferase 32 U/L (13-56); Albumin 3.4 g/dL (3.4-5.0); Anion Gap 8 (5-15); Aspartate Aminotransferase 28 U/L (15-37); BUN/Creatinine Ratio 26.8; Blood Urea Nitrogen 19 mg/dL (7-18); Calcium 8.9 mg/dL (8.5-10.1); Carbon Dioxide 26 mmol/L (21-32); Chloride 108 mmol/L (98-107); GFR African American 101 mL/min; GFR Non-African American 84 mL/min; Glucose 101 mg/dL (74-106); Magnesium 2.2 mg/dL (1.6-2.6); Potassium 4.5 mmol/L (3.5-5.1); Sodium 142 mmol/L (136-145)
[2017-02-08 05:09] LABS: Alkaline Phosphatase 38 U/L (45-117); Bilirubin, Total 0.5 mg/dL (0.2-1.0); Total Protein 6.6 g/dL (6.4-8.2)
[2017-02-08 05:53] VITALS: BP 96/57
== END 2017-02-08 07:10 | disposition home or self-care (01) ==
LOC: ER 00:30
DX: T45.511A Poisoning by anticoagulants, accidental (unintentional), initial encounter (principal); I48.2 Chronic atrial fibrillation; I35.0 Nonrheumatic aortic (valve) stenosis; J44.9 Chronic obstructive pulmonary disease, unspecified; E78.5 Hyperlipidemia, unspecified; I25.2 Old myocardial infarction; E07.89 Other specified disorders of thyroid; I11.0 Hypertensive heart disease with heart failure; I50.9 Heart failure, unspecified; Z87.442 Personal history of urinary calculi; Z95.1 Presence of aortocoronary bypass graft; Z90.49 Acquired absence of other specified parts of digestive tract; Z90.710 Acquired absence of both cervix and uterus; Z95.0 Presence of cardiac pacemaker; Z88.6 Allergy status to analgesic agent; Z88.8 Allergy status to other drugs, medicaments and biological substances; Y92.89 Other specified places as the place of occurrence of the external cause
CPT/HCPCS: 36415; 71010; 80053; 83735; 83880; 84484; 85025; 85610; 85730; 93005

== ENCOUNTER 2017-02-09 01:16 | Emergency (ER) | payer OTHER ==
[~2017-02-09] VITALS: Ht 157.5 cm; Wt 63.5 kg
[2017-02-09 01:41] VITALS: BP 121/52
== END 2017-02-09 04:06 | disposition left against medical advice (07) ==
LOC: ER 01:18
DX: R07.9 Chest pain, unspecified (principal); Z53.21 Procedure and treatment not carried out due to patient leaving prior to being seen by health care provider
CPT/HCPCS: 93005

== ENCOUNTER 2017-02-09 22:34 | Emergency (ER) | payer OTHER ==
[~2017-02-09] VITALS: Ht 157.5 cm; Wt 66.7 kg
[2017-02-09 23:10] LABS: Basophils # (auto) 0 uL; Basophils % (auto) 0.8 % (0.0-2.0); Eosinophils # (auto) 0.1 uL; Eosinophils % (auto) 2.2 % (0.0-7.0); Hematocrit 36.6 % (36.0-46.0); Hemoglobin 12.4 g/dL (12.2-16.2); Lymphocytes % (auto) 26.8 % (10.0-50.0); Mean Corpuscular Hgb Conc. 33.9 g/dL (32.0-36.0); Mean Corpuscular Volume 91.7 fL (80.0-100.0); Mean Platelet Volume 8.4 fL (6.9-10.8); Monocytes # (auto) 0.3 uL; Monocytes % (auto) 9.2 % (0.0-12.0); Neutrophils # (auto) 2.2 uL; Nucleated Red Blood Cells % 0.1 %; Platelet Count (auto) 101 10^3/uL (140-450); Red Cell Distribution Width 14.7 % (11.8-14.3); White Blood Cell 3.6 10^3/uL (4.4-10.8)
[2017-02-09 23:27] LABS: INR 2.27 (0.9-1.15); Partial Thromboplastin Time 34.6 sec (22.64-33.71); Prothrombin Time 24.9 sec (9.37-12.3)
[2017-02-09 23:46] LABS: Albumin 3.7 g/dL (3.4-5.0); Alkaline Phosphatase 43 U/L (45-117); Anion Gap 10 (5-15); Aspartate Aminotransferase 35 U/L (15-37); Bilirubin, Total 0.5 mg/dL (0.2-1.0); Blood Urea Nitrogen 20 mg/dL (7-18); Calcium 9.5 mg/dL (8.5-10.1); Carbon Dioxide 23 mmol/L (21-32); Chloride 106 mmol/L (98-107); GFR African American 105 mL/min; GFR Non-African American 87 mL/min; Glucose 110 mg/dL (74-106); Magnesium 2.2 mg/dL (1.6-2.6); Potassium 4.2 mmol/L (3.5-5.1); Sodium 139 mmol/L (136-145)
[2017-02-10 05:25] LABS: Urine RBC None Seen /hpf (0 - 4)
[2017-02-10 05:32] LABS: Urine Bilirubin Negative (Negative); Urine Blood Negative /uL (Negative); Urine Color Yellow (Yellow); Urine Glucose Normal (Normal); Urine Ketone 1+ (Negative); Urine Nitrite Negative (Negative); Urine Squamous Epithelial Cell FEW /hpf (<5); Urine Urobilinogen Normal (Negative)
[2017-02-10 07:44] VITALS: BP 113/65
== END 2017-02-10 09:53 | disposition home or self-care (01) ==
LOC: ER 22:39
DX: R07.9 Chest pain, unspecified (principal); I48.91 Unspecified atrial fibrillation; I25.810 Atherosclerosis of coronary artery bypass graft(s) without angina pectoris; I50.9 Heart failure, unspecified; J44.9 Chronic obstructive pulmonary disease, unspecified; K21.9 Gastro-esophageal reflux disease without esophagitis; E78.5 Hyperlipidemia, unspecified; I11.0 Hypertensive heart disease with heart failure; I25.2 Old myocardial infarction; E07.9 Disorder of thyroid, unspecified; Z90.49 Acquired absence of other specified parts of digestive tract; Z98.61 Coronary angioplasty status; Z90.710 Acquired absence of both cervix and uterus; Z95.0 Presence of cardiac pacemaker; Z88.8 Allergy status to other drugs, medicaments and biological substances; Z79.899 Other long term (current) drug therapy; Z95.1 Presence of aortocoronary bypass graft; Z87.442 Personal history of urinary calculi
CPT/HCPCS: 36415; 71010; 80053; 81001; 83735; 84484; 85025; 85610; 85730; 93005

== ENCOUNTER 2017-03-08 04:22 | Emergency (ER) | payer OTHER ==
[~2017-03-08] VITALS: Ht 157.5 cm; Wt 63.5 kg
[2017-03-08] MEDS ORDERED: ASPirin 81 mg TAB PO ONE (07:00)
[2017-03-08 09:29] LABS: Basophils # (auto) 0 uL; Basophils % (auto) 0.8 % (0.0-2.0); Eosinophils # (auto) 0.1 uL; Eosinophils % (auto) 2.3 % (0.0-7.0); Lymphocytes % (auto) 32.6 % (10.0-50.0); Mean Corpuscular Hgb Conc. 33.3 g/dL (32.0-36.0); Mean Corpuscular Volume 93.2 fL (80.0-100.0); Mean Platelet Volume 8.3 fL (6.9-10.8); Monocytes # (auto) 0.3 uL; Monocytes % (auto) 10.2 % (0.0-12.0); Neutrophils # (auto) 1.6 uL; Neutrophils % (auto) 54.1 % (37.0-80.0); Nucleated Red Blood Cells % 0.1 %; Platelet Count (auto) 83 10^3/uL (140-450); Red Cell Distribution Width 14.6 % (11.8-14.3)
[2017-03-08 09:42] LABS: INR 2.67 (0.9-1.15); Partial Thromboplastin Time 36.8 sec (22.64-33.71); Prothrombin Time 29.4 sec (9.37-12.3)
[2017-03-08 09:47] LABS: Albumin 3.2 g/dL (3.4-5.0); Alkaline Phosphatase 34 U/L (45-117); Anion Gap 8 (5-15); Aspartate Aminotransferase 26 U/L (15-37); BUN/Creatinine Ratio 22.1; Bilirubin, Total 0.4 mg/dL (0.2-1.0); Blood Urea Nitrogen 19 mg/dL (7-18); Calcium 8.5 mg/dL (8.5-10.1); Carbon Dioxide 24 mmol/L (21-32); Chloride 107 mmol/L (98-107); GFR African American 81 mL/min; GFR Non-African American 67 mL/min; Glucose 90 mg/dL (74-106); Sodium 139 mmol/L (136-145); Total Protein 6.2 g/dL (6.4-8.2)
[2017-03-08 10:03] LABS: Temperature: 23.3 C (20.0-25.0)
[2017-03-08 11:49] LABS: Urine Bilirubin Negative (Negative); Urine Blood Negative /uL (Negative); Urine Color Yellow (Yellow); Urine Glucose Normal (Normal); Urine Hyaline Cast FEW /lpf (0 - 2); Urine Ketone Negative (Negative); Urine Mucus FEW (None Seen); Urine Nitrite Negative (Negative); Urine RBC 1 /hpf (0 - 4); Urine Squamous Epithelial Cell FEW /hpf (<5); Urine Urobilinogen Normal (Negative); Urine pH 5.5 (5.0-8.0)
[2017-03-08 12:30] VITALS: BP 92/50
== END 2017-03-08 12:41 | disposition home or self-care (01) ==
LOC: EDBD 04:22 → ER 04:27
DX: I48.91 Unspecified atrial fibrillation (principal); N20.0 Calculus of kidney; N39.0 Urinary tract infection, site not specified; I25.2 Old myocardial infarction; E07.9 Disorder of thyroid, unspecified; I25.10 Atherosclerotic heart disease of native coronary artery without angina pectoris; I11.0 Hypertensive heart disease with heart failure; I50.9 Heart failure, unspecified; J44.9 Chronic obstructive pulmonary disease, unspecified; E78.5 Hyperlipidemia, unspecified; Z88.1 Allergy status to other antibiotic agents; Z95.1 Presence of aortocoronary bypass graft; Z79.01 Long term (current) use of anticoagulants; K21.9 Gastro-esophageal reflux disease without esophagitis; Z90.710 Acquired absence of both cervix and uterus; Z90.49 Acquired absence of other specified parts of digestive tract; Z98.61 Coronary angioplasty status; Z88.0 Allergy status to penicillin
CPT/HCPCS: 36415; 71010; 74176; 80053; 81001; 83880; 84443; 84484; 85025; 85610; 85730; 93005

== ENCOUNTER 2017-06-10 22:10 | Emergency (ER) | payer OTHER ==
[~2017-06-10] VITALS: Ht 157.5 cm; Wt 59.0 kg
[2017-06-10 23:48] LABS: Basophils # (auto) 0 uL; Basophils % (auto) 0.8 % (0.0-2.0); Eosinophils # (auto) 0.1 uL; Eosinophils % (auto) 0.9 % (0.0-7.0); Hematocrit 33.9 % (36.0-46.0); Hemoglobin 11.3 g/dL (12.2-16.2); Lymphocytes # (auto) 0.6 uL; Lymphocytes % (auto) 9.5 % (10.0-50.0); Mean Corpuscular Hemoglobin 31.6 pg (28.0-32.0); Mean Corpuscular Hgb Conc. 33.5 g/dL (32.0-36.0); Mean Corpuscular Volume 94.4 fL (80.0-100.0); Monocytes # (auto) 0.4 uL; Monocytes % (auto) 6.2 % (0.0-12.0); Neutrophils % (auto) 82.6 % (37.0-80.0); Nucleated Red Blood Cells % 0.1 %; Platelet Count (auto) 97 10^3/uL (140-450); Red Blood Cells 3.59 10^6/uL (4.0-5.20); White Blood Cell 6.1 10^3/uL (4.4-10.8)
[2017-06-11 00:06] LABS: Albumin 3.5 g/dL (3.4-5.0); Anion Gap 5 (5-15); Blood Urea Nitrogen 31 mg/dL (7-18); Calcium 8.4 mg/dL (8.5-10.1); Carbon Dioxide 28 mmol/L (21-32); Chloride 108 mmol/L (98-107); Glucose 121 mg/dL (74-106); Potassium 3.8 mmol/L (3.5-5.1); Sodium 141 mmol/L (136-145)
[2017-06-11 00:08] LABS: Alanine Aminotransferase 30 U/L (13-56); BUN/Creatinine Ratio 38.3; GFR African American 87 mL/min; GFR Non-African American 72 mL/min
[2017-06-11 00:13] LABS: Alkaline Phosphatase 44 U/L (45-117); Aspartate Aminotransferase 18 U/L (15-37); Bilirubin, Total 0.4 mg/dL (0.2-1.0); Total Protein 6.7 g/dL (6.4-8.2)
[2017-06-11] MEDS ORDERED: SODIUM CHLORIDE 0.9% 1,000 ML IV ONE (08:06)
[2017-06-11 08:59] LABS: Magnesium 2.1 mg/dL (1.6-2.6)
[2017-06-11] MEDS ORDERED: FLEET ENEMA(ADULT) 135 ML PR ONE (09:45)
[2017-06-11] MEDS ORDERED: MORPHINE SULFATE 4 MG/ML SYR/VIAL IV ONE (09:45)
[2017-06-11 11:57] LABS: Urine Bacteria FEW /hpf (None Seen); Urine Blood Negative /uL (Negative); Urine Hyaline Cast FEW /lpf (0 - 2); Urine Mucus FEW (None Seen); Urine Specific Gravity 1.028 (1.001-1.035); Urine WBC 22 /hpf (0 - 5)
[2017-06-11 12:20] VITALS: BP 109/69
[2017-06-11 12:26] LABS: INR 1.29 (0.9-1.15); Partial Thromboplastin Time 27.7 sec (22.64-33.71); Prothrombin Time 14.1 sec (9.37-12.3)
== END 2017-06-11 13:42 | disposition home or self-care (01) ==
LOC: ER 22:10
DX: K56.49 Other impaction of intestine (principal); D69.6 Thrombocytopenia, unspecified; I48.2 Chronic atrial fibrillation; M17.11 Unilateral primary osteoarthritis, right knee; K62.89 Other specified diseases of anus and rectum; N39.0 Urinary tract infection, site not specified; I11.0 Hypertensive heart disease with heart failure; I50.9 Heart failure, unspecified; K21.9 Gastro-esophageal reflux disease without esophagitis; J44.9 Chronic obstructive pulmonary disease, unspecified; I25.10 Atherosclerotic heart disease of native coronary artery without angina pectoris; Z87.442 Personal history of urinary calculi; Z79.01 Long term (current) use of anticoagulants; Z88.6 Allergy status to analgesic agent; Z88.8 Allergy status to other drugs, medicaments and biological substances
CPT/HCPCS: 36415; 51702; 74176; 80053; 81001; 83690; 83735; 84443; 84484; 85025; 85610; 85730; 93005; 96361; 96374; 99285; J2270

== ENCOUNTER 2017-06-20 22:05 | Emergency (ER) | payer OTHER ==
[~2017-06-20] VITALS: Ht 154.9 cm; Wt 72.6 kg
[2017-06-20 23:55] LABS: Albumin 3.3 g/dL (3.4-5.0); Anion Gap 10 (5-15); Blood Urea Nitrogen 18 mg/dL (7-18); Calcium 8.4 mg/dL (8.5-10.1); Carbon Dioxide 25 mmol/L (21-32); Chloride 106 mmol/L (98-107); Glucose 103 mg/dL (74-106); Magnesium 1.5 mg/dL (1.6-2.6); Potassium 3.5 mmol/L (3.5-5.1); Sodium 141 mmol/L (136-145)
[2017-06-20 23:57] LABS: Alanine Aminotransferase 21 U/L (13-56); Aspartate Aminotransferase 16 U/L (15-37); BUN/Creatinine Ratio 24.3; GFR African American 97 mL/min; GFR Non-African American 80 mL/min
[2017-06-21 00:02] LABS: Alkaline Phosphatase 33 U/L (45-117); Bilirubin, Total 0.4 mg/dL (0.2-1.0); Total Protein 6.1 g/dL (6.4-8.2)
[2017-06-21 00:04] LABS: Basophils # (auto) 0 uL; Basophils % (auto) 0.7 % (0.0-2.0); Eosinophils # (auto) 0.1 uL; Eosinophils % (auto) 2.6 % (0.0-7.0); Hematocrit 33.5 % (36.0-46.0); Hemoglobin 11.2 g/dL (12.2-16.2); Lymphocytes # (auto) 0.7 uL; Lymphocytes % (auto) 21.5 % (10.0-50.0); Mean Corpuscular Hemoglobin 31.2 pg (28.0-32.0); Mean Corpuscular Hgb Conc. 33.4 g/dL (32.0-36.0); Mean Corpuscular Volume 93.6 fL (80.0-100.0); Monocytes # (auto) 0.3 uL; Monocytes % (auto) 8.8 % (0.0-12.0); Neutrophils # (auto) 2.2 uL; Neutrophils % (auto) 66.4 % (37.0-80.0); Nucleated Red Blood Cells % 0.1 %; Platelet Count (auto) 124 10^3/uL (140-450); Red Blood Cells 3.57 10^6/uL (4.0-5.20); Red Cell Distribution Width 14.9 % (11.8-14.3); White Blood Cell 3.4 10^3/uL (4.4-10.8)
[2017-06-21 06:22] LABS: Urine Bacteria NONE SEEN /hpf (None Seen); Urine Blood Negative /uL (Negative); Urine Specific Gravity 1.022 (1.001-1.035); Urine WBC 1 /hpf (0 - 5)
[2017-06-21] MEDS ORDERED: POTASSIUM CHL 10% (20 MEQ/15ML) 15ml ORAL SOLN PO ONE (06:45)
[2017-06-21] MEDS ORDERED: FUROSEMIDE 20 MG/2 ML VIAL IV ONE (06:45)
[2017-06-21 07:21] VITALS: BP 127/83
== END 2017-06-21 09:27 | disposition home or self-care (01) ==
LOC: ER 22:05
DX: I48.91 Unspecified atrial fibrillation (principal); I11.0 Hypertensive heart disease with heart failure; I50.9 Heart failure, unspecified; J44.9 Chronic obstructive pulmonary disease, unspecified; K21.9 Gastro-esophageal reflux disease without esophagitis; E78.5 Hyperlipidemia, unspecified; I25.2 Old myocardial infarction; I25.810 Atherosclerosis of coronary artery bypass graft(s) without angina pectoris; Z88.8 Allergy status to other drugs, medicaments and biological substances; Z88.6 Allergy status to analgesic agent; Z79.01 Long term (current) use of anticoagulants; Z95.1 Presence of aortocoronary bypass graft; Z95.0 Presence of cardiac pacemaker; Z87.442 Personal history of urinary calculi; Z98.61 Coronary angioplasty status
CPT/HCPCS: 36415; 71045; 80053; 81001; 83735; 83880; 84484; 85025; 93005; 96374; 99285; J1940

== ENCOUNTER 2017-06-24 01:24 | Inpatient (IN) | payer OTHER ==
[~2017-06-24] VITALS: Ht 157.5 cm; Wt 77.1 kg
[2017-06-24 01:58] LABS: Basophils # (auto) 0 uL; Basophils % (auto) 0.9 % (0.0-2.0); Eosinophils # (auto) 0.1 uL; Eosinophils % (auto) 2.6 % (0.0-7.0); Hematocrit 35.1 % (36.0-46.0); Hemoglobin 11.7 g/dL (12.2-16.2); Lymphocytes % (auto) 32.9 % (10.0-50.0); Mean Corpuscular Hemoglobin 30.8 pg (28.0-32.0); Mean Corpuscular Hgb Conc. 33.3 g/dL (32.0-36.0); Mean Corpuscular Volume 92.5 fL (80.0-100.0); Monocytes # (auto) 0.3 uL; Monocytes % (auto) 9.9 % (0.0-12.0); Neutrophils # (auto) 1.7 uL; Neutrophils % (auto) 53.7 % (37.0-80.0); Nucleated Red Blood Cells % 0.1 %; Platelet Count (auto) 123 10^3/uL (140-450); Red Blood Cells 3.79 10^6/uL (4.0-5.20); Red Cell Distribution Width 15.3 % (11.8-14.3); White Blood Cell 3.2 10^3/uL (4.4-10.8)
[2017-06-24 02:13] LABS: Albumin 3.4 g/dL (3.4-5.0); Anion Gap 9 (5-15); BUN/Creatinine Ratio 17.7; Blood Urea Nitrogen 17 mg/dL (7-18); Calcium 8.6 mg/dL (8.5-10.1); Carbon Dioxide 25 mmol/L (21-32); Chloride 108 mmol/L (98-107); GFR African American 72 mL/min; GFR Non-African American 59 mL/min; Glucose 100 mg/dL (74-106); Magnesium 1.6 mg/dL (1.6-2.6); Sodium 142 mmol/L (136-145)
[2017-06-24 02:18] LABS: Alanine Aminotransferase 21 U/L (13-56); Alkaline Phosphatase 33 U/L (45-117); Aspartate Aminotransferase 21 U/L (15-37); Bilirubin, Total 0.3 mg/dL (0.2-1.0); Total Protein 6.4 g/dL (6.4-8.2)
[2017-06-24] MEDS ORDERED: NITROGLYCERIN 0.2MG/HR TOPICAL PATCH TD ONE (04:00)
[2017-06-24 04:17] LABS: Partial Thromboplastin Time 39.2 sec (22.64-33.71)
[2017-06-24 04:20] LABS: INR 4.16 (0.9-1.15)
[2017-06-24] MEDS ORDERED: IOHEXOL 350 MG/ML 100ML IJ ONE (06:20)
[2017-06-24] MEDS ORDERED: MORPHINE SULFATE 4 MG/ML SYR/VIAL IV PRN (06:30)
[2017-06-24] MEDS ORDERED: ACETAMINOPHEN 325 MG TAB PO PRN (06:30)
[2017-06-24] MEDS ORDERED: TEMAZEPAM 15 MG CAP PO PRN (06:30)
[2017-06-24] MEDS ORDERED: HYDROcodone-ACET 5/325MG TAB PO PRN (06:30)
[2017-06-24] MEDS ORDERED: ONDANSETRON HCL 4 MG/2 ML VIAL IV PRN (06:30)
[2017-06-24] MEDS ORDERED: NITROGLYCERIN 0.4 MG SL TAB SL PRN (06:30)
[2017-06-24] MEDS: METOPROLOL TARTRATE 50 MG TAB PO SCH ×2 (07:12→14:00)
[2017-06-24 09:24] VITALS: BP 96/57
[2017-06-24] MEDS ORDERED: FUROSEMIDE 20 MG TAB PO SCH (10:00)
[2017-06-24] MEDS ORDERED: FAMOTIDINE 20 MG TAB PO SCH (10:00)
[2017-06-24] MEDS ORDERED: THYROID 60 MG TAB PO SCH (10:00)
[2017-06-24 15:09] VITALS: BP 111/69
== END 2017-06-24 15:21 | disposition short-term general hospital (02) | DRG 206 ==
LOC: ER 01:28 → TELE 01:29
PROVIDERS: ADMIT Nurse Practitioner; ATTEND Family Medicine
DX: M94.0 Chondrocostal junction syndrome [Tietze] (principal); D68.9 Coagulation defect, unspecified; I48.2 Chronic atrial fibrillation; I50.9 Heart failure, unspecified; I11.0 Hypertensive heart disease with heart failure; E03.9 Hypothyroidism, unspecified; I25.5 Ischemic cardiomyopathy; J44.9 Chronic obstructive pulmonary disease, unspecified; I25.119 Atherosclerotic heart disease of native coronary artery with unspecified angina pectoris; I25.2 Old myocardial infarction; Z79.01 Long term (current) use of anticoagulants; Z80.3 Family history of malignant neoplasm of breast; Z82.49 Family history of ischemic heart disease and other diseases of the circulatory system; Z83.3 Family history of diabetes mellitus; Z90.10 Acquired absence of unspecified breast and nipple; Z90.710 Acquired absence of both cervix and uterus; Z95.1 Presence of aortocoronary bypass graft; Z95.5 Presence of coronary angioplasty implant and graft; Z95.810 Presence of automatic (implantable) cardiac defibrillator; Z88.6 Allergy status to analgesic agent; Z88.8 Allergy status to other drugs, medicaments and biological substances; Z90.49 Acquired absence of other specified parts of digestive tract
CPT/HCPCS: 36415; 71045; 71275; 80053; 83735; 83880; 84443; 84484; 85025; 85379; 85610; 85730; 93005

== ENCOUNTER 2017-06-29 22:49 | Inpatient (IN) | payer OTHER ==
[~2017-06-29] VITALS: Ht 157.5 cm; Wt 57.6 kg
[2017-06-29 23:17] LABS: Basophils # (auto) 0 uL; Basophils % (auto) 0.9 % (0.0-2.0); Eosinophils # (auto) 0.1 uL; Eosinophils % (auto) 2.1 % (0.0-7.0); Hematocrit 33.2 % (36.0-46.0); Hemoglobin 11.1 g/dL (12.2-16.2); Lymphocytes # (auto) 0.7 uL; Lymphocytes % (auto) 24.4 % (10.0-50.0); Mean Corpuscular Hgb Conc. 33.3 g/dL (32.0-36.0); Monocytes # (auto) 0.2 uL; Monocytes % (auto) 8.9 % (0.0-12.0); Neutrophils # (auto) 1.7 uL; Neutrophils % (auto) 63.7 % (37.0-80.0); Platelet Count (auto) 77 10^3/uL (140-450); Red Blood Cells 3.57 10^6/uL (4.0-5.20); Red Cell Distribution Width 15.2 % (11.8-14.3); White Blood Cell 2.7 10^3/uL (4.4-10.8)
[2017-06-29 23:34] LABS: Albumin 3.3 g/dL (3.4-5.0); Anion Gap 9 (5-15); Aspartate Aminotransferase 15 U/L (15-37); BUN/Creatinine Ratio 34.9; Blood Urea Nitrogen 22 mg/dL (7-18); Calcium 8.8 mg/dL (8.5-10.1); Carbon Dioxide 22 mmol/L (21-32); Chloride 111 mmol/L (98-107); GFR African American 116 mL/min; GFR Non-African American 96 mL/min; Glucose 103 mg/dL (74-106); Potassium 3.7 mmol/L (3.5-5.1); Sodium 142 mmol/L (136-145)
[2017-06-29 23:38] LABS: Alanine Aminotransferase 20 U/L (13-56); Alkaline Phosphatase 34 U/L (45-117); Bilirubin, Total 0.5 mg/dL (0.2-1.0); Total Protein 6.2 g/dL (6.4-8.2)
[2017-06-30] MEDS ORDERED: LORazepam 0.5 MG TAB PO ONE (00:45)
[2017-06-30] MEDS ORDERED: NITROGLYCERIN 0.2MG/HR TOPICAL PATCH TD ONE (00:45)
[2017-06-30] MEDS ORDERED: FUROSEMIDE 20 MG/2 ML VIAL IV ONE ×2 (03:00→08:15)
[2017-06-30 04:38] LABS: Urine Bacteria NONE SEEN /hpf (None Seen); Urine Blood Negative /uL (Negative); Urine WBC 2 /hpf (0 - 5)
[2017-06-30] MEDS ORDERED: LORazepam 0.5 MG TAB PO PRN (08:00)
[2017-06-30] MEDS ORDERED: ONDANSETRON HCL 4 MG/2 ML VIAL IV PRN (08:00)
[2017-06-30] MEDS ORDERED: HYDROcodone-ACET 5/325MG TAB PO PRN (08:00)
[2017-06-30] MEDS ORDERED: MORPHINE SULFATE 4 MG/ML SYR/VIAL IV PRN (08:00)
[2017-06-30] MEDS ORDERED: NITROGLYCERIN 0.4 MG SL TAB SL PRN (08:00)
[2017-06-30] MEDS ORDERED: ACETAMINOPHEN 500 MG TAB PO PRN (08:00)
[2017-06-30 08:34] LABS: INR 2.36 (0.9-1.15); Partial Thromboplastin Time 34.3 sec (22.64-33.71); Prothrombin Time 25.9 sec (9.37-12.3)
[2017-06-30] MEDS ORDERED: FUROSEMIDE 40 MG TAB PO SCH (10:00)
[2017-06-30] MEDS ORDERED: LISINOPRIL 10 MG TAB PO SCH (10:00)
[2017-06-30] MEDS ORDERED: METOPROLOL SUCCINATE XL 50 MG TAB PO SCH (10:00)
[2017-06-30] MEDS ORDERED: ISO60SRT PO (11:52)
[2017-06-30] MEDS ORDERED: CLOP75TA28 PO (11:52)
[2017-06-30] MEDS ORDERED: ALBU2TAB4 PO (11:52)
[2017-06-30] MEDS ORDERED: ASPI81CH43 PO (11:52)
[2017-06-30] MEDS ORDERED: AMIO200T33 PO (11:52)
[2017-06-30] MEDS ORDERED: POLY335015 PO (11:52)
[2017-06-30] MEDS ORDERED: MAGN400T5 PO (11:52)
[2017-06-30] MEDS ORDERED: PANT40TA2 PO (11:52)
[2017-06-30] MEDS ORDERED: LEVO125T66 PO (11:52)
[2017-06-30 13:30] VITALS: BP 132/85
[2017-06-30] MEDS ORDERED: WARFARIN SODIUM 2 MG TAB PO ONE (17:00)
[2017-06-30 20:00] VITALS: BP 114/63
[2017-06-30 22:00] VITALS: BP 114/63
[2017-07-01 00:17] VITALS: BP 110/62
[2017-07-01 05:00] VITALS: BP 126/63
[2017-07-01 06:01] LABS: Basophils # (auto) 0 uL; Basophils % (auto) 0.9 % (0.0-2.0); Eosinophils # (auto) 0.1 uL; Hematocrit 34.3 % (36.0-46.0); Hemoglobin 11.6 g/dL (12.2-16.2); Lymphocytes # (auto) 0.8 uL; Lymphocytes % (auto) 30.5 % (10.0-50.0); Mean Corpuscular Hemoglobin 31.3 pg (28.0-32.0); Mean Corpuscular Hgb Conc. 33.8 g/dL (32.0-36.0); Mean Corpuscular Volume 92.5 fL (80.0-100.0); Monocytes # (auto) 0.3 uL; Monocytes % (auto) 11.9 % (0.0-12.0); Neutrophils # (auto) 1.3 uL; Neutrophils % (auto) 53.7 % (37.0-80.0); Nucleated Red Blood Cells % 0.2 %; Platelet Count (auto) 77 10^3/uL (140-450); Red Blood Cells 3.71 10^6/uL (4.0-5.20); Red Cell Distribution Width 14.8 % (11.8-14.3); White Blood Cell 2.5 10^3/uL (4.4-10.8)
[2017-07-01 06:03] LABS: INR 2.42 (0.9-1.15); Partial Thromboplastin Time 34.7 sec (22.64-33.71); Prothrombin Time 26.6 sec (9.37-12.3)
[2017-07-01] MEDS ORDERED: FUROSEMIDE 40 MG TAB PO SCH (10:00)
== END 2017-07-01 06:15 | disposition short-term general hospital (02) | DRG 280 ==
LOC: EDBD 22:49 → ER 22:57 → TELE 22:58 → TELE-WESTW 06-30 12:00 → WEST WING 06-30 16:15
PROVIDERS: ADMIT Nurse Practitioner Family; ATTEND Family Medicine
DX: I21.9 Acute myocardial infarction, unspecified (principal); I50.33 Acute on chronic diastolic (congestive) heart failure; J44.9 Chronic obstructive pulmonary disease, unspecified; I48.91 Unspecified atrial fibrillation; E05.90 Thyrotoxicosis, unspecified without thyrotoxic crisis or storm; I11.0 Hypertensive heart disease with heart failure; E03.9 Hypothyroidism, unspecified; E78.5 Hyperlipidemia, unspecified; I25.10 Atherosclerotic heart disease of native coronary artery without angina pectoris; F41.9 Anxiety disorder, unspecified; K21.9 Gastro-esophageal reflux disease without esophagitis; Z79.01 Long term (current) use of anticoagulants; Z79.899 Other long term (current) drug therapy; Z80.3 Family history of malignant neoplasm of breast; Z82.49 Family history of ischemic heart disease and other diseases of the circulatory system; Z83.3 Family history of diabetes mellitus; I25.2 Old myocardial infarction; Z87.442 Personal history of urinary calculi; Z90.710 Acquired absence of both cervix and uterus; Z95.0 Presence of cardiac pacemaker; Z95.1 Presence of aortocoronary bypass graft; Z95.5 Presence of coronary angioplasty implant and graft; Z88.6 Allergy status to analgesic agent; Z88.8 Allergy status to other drugs, medicaments and biological substances; Z90.49 Acquired absence of other specified parts of digestive tract
CPT/HCPCS: 36415; 71045; 80053; 81001; 83880; 84443; 84484; 85025; 85610; 85730; 87081; 93005; 96374

== ENCOUNTER 2017-07-28 21:19 | Emergency (ER) | payer OTHER ==
[~2017-07-28] VITALS: Ht 157.5 cm; Wt 59.0 kg
[~2017-07-28 21:19] MED LIST changes: +ALBU2TAB4 PO; +AMIO200T33 PO; +ASPI81CH43 PO; +CLOP75TA28 PO; +ISO60SRT PO; +LEVO125T66 PO; +MAGN400T5 PO; +PANT40TA2 PO; +POLY335015 PO
[2017-07-28 22:38] LABS: Basophils # (auto) 0 uL; Eosinophils # (auto) 0.1 uL; Eosinophils % (auto) 3.4 % (0.0-7.0); Hematocrit 34.5 % (36.0-46.0); Hemoglobin 11.4 g/dL (12.2-16.2); Lymphocytes # (auto) 0.7 uL; Lymphocytes % (auto) 22.3 % (10.0-50.0); Mean Corpuscular Hemoglobin 31.2 pg (28.0-32.0); Mean Corpuscular Volume 94.7 fL (80.0-100.0); Monocytes # (auto) 0.3 uL; Monocytes % (auto) 9.6 % (0.0-12.0); Neutrophils # (auto) 1.9 uL; Neutrophils % (auto) 63.7 % (37.0-80.0); Nucleated Red Blood Cells % 0.2 %; Red Blood Cells 3.64 10^6/uL (4.0-5.20); Red Cell Distribution Width 15.4 % (11.8-14.3)
[2017-07-28 22:41] LABS: Platelet Count (auto) 83 10^3/uL (140-450)
[2017-07-28 22:48] LABS: Albumin 3.6 g/dL (3.4-5.0); Anion Gap 7 (5-15); Blood Urea Nitrogen 31 mg/dL (7-18); Calcium 8.9 mg/dL (8.5-10.1); Carbon Dioxide 25 mmol/L (21-32); Chloride 109 mmol/L (98-107); Glucose 104 mg/dL (74-106); Magnesium 1.9 mg/dL (1.6-2.6); Potassium 3.8 mmol/L (3.5-5.1); Sodium 141 mmol/L (136-145)
[2017-07-28 22:49] LABS: Alanine Aminotransferase 23 U/L (13-56); BUN/Creatinine Ratio 37.3; GFR African American 85 mL/min; GFR Non-African American 70 mL/min
[2017-07-28 23:01] LABS: Alkaline Phosphatase 39 U/L (45-117); Aspartate Aminotransferase 18 U/L (15-37); Bilirubin, Total 0.4 mg/dL (0.2-1.0); Total Protein 6.4 g/dL (6.4-8.2)
[2017-07-29 06:57] LABS: Urine Bacteria NONE SEEN /hpf (None Seen); Urine Blood 2+ /uL (Negative); Urine Mucus FEW (None Seen); Urine WBC 7 /hpf (0 - 5)
[2017-07-29 08:58] VITALS: BP 131/61
== END 2017-07-29 09:34 | disposition home or self-care (01) ==
LOC: ER 21:19
DX: N39.0 Urinary tract infection, site not specified (principal); K59.00 Constipation, unspecified; I48.91 Unspecified atrial fibrillation; I50.9 Heart failure, unspecified; J44.9 Chronic obstructive pulmonary disease, unspecified; K21.9 Gastro-esophageal reflux disease without esophagitis; E78.5 Hyperlipidemia, unspecified; I11.0 Hypertensive heart disease with heart failure; I25.2 Old myocardial infarction; Z87.442 Personal history of urinary calculi; I25.810 Atherosclerosis of coronary artery bypass graft(s) without angina pectoris; Z95.1 Presence of aortocoronary bypass graft; Z95.0 Presence of cardiac pacemaker; Z88.8 Allergy status to other drugs, medicaments and biological substances; Z88.6 Allergy status to analgesic agent; Z90.710 Acquired absence of both cervix and uterus
CPT/HCPCS: 36415; 71045; 74176; 80053; 81001; 83735; 84484; 85025; 93005

== ENCOUNTER 2017-12-19 18:37 | Inpatient (IN) | payer OTHER ==
[~2017-12-19] VITALS: Ht 165.1 cm; Wt 58.7 kg
[2017-12-19 20:56] LABS: Basophils # (auto) 0 uL; Basophils % (auto) 0.4 % (0.0-2.0); Eosinophils # (auto) 0 uL; Eosinophils % (auto) 0.4 % (0.0-7.0); Hematocrit 37.2 % (36.0-46.0); Hemoglobin 12.6 g/dL (12.2-16.2); Lymphocytes # (auto) 0.3 uL; Lymphocytes % (auto) 5.7 % (10.0-50.0); Mean Corpuscular Hemoglobin 30.9 pg (28.0-32.0); Mean Corpuscular Hgb Conc. 33.8 g/dL (32.0-36.0); Mean Corpuscular Volume 91.6 fL (80.0-100.0); Monocytes # (auto) 0.5 uL; Neutrophils # (auto) 4.8 uL; Neutrophils % (auto) 85.5 % (37.0-80.0); Platelet Count (auto) 102 10^3/uL (140-450); Red Blood Cells 4.06 10^6/uL (4.0-5.20); Red Cell Distribution Width 14.5 % (11.8-14.3); White Blood Cell 5.7 10^3/uL (4.4-10.8)
[2017-12-19 21:04] LABS: Albumin 3.4 g/dL (3.4-5.0); BUN/Creatinine Ratio 15.9; Calcium 8.5 mg/dL (8.5-10.1); Magnesium 1.7 mg/dL (1.6-2.6); Potassium 4.2 mmol/L (3.5-5.1)
[2017-12-19 21:08] LABS: Partial Thromboplastin Time 37.8 sec (23.78-33.04); Prothrombin Time 44.3 sec (9.27-12.13)
[2017-12-19 21:09] LABS: Total Protein 6.9 g/dL (6.4-8.2)
[2017-12-19 21:12] LABS: INR 4.51 (0.9-1.15)
[2017-12-19] MEDS ORDERED: ALBUTEROL SULF 2.5 MG/0.5ML(0.5%) NEB SOLN NEB PRN (22:00)
[2017-12-19] MEDS ORDERED: ONDANSETRON HCL 4 MG/2 ML VIAL IV PRN (22:00)
[2017-12-19] MEDS ORDERED: HYDROcodone-ACET 5/325MG TAB PO PRN (22:00)
[2017-12-19] MEDS ORDERED: DOCUSATE SOD 100 MG CAP PO PRN (22:00)
[2017-12-19] MEDS ORDERED: MORPHINE SULF INJ 2 MG/ML SYRINGE 1ML IV PRN (22:00)
[2017-12-19] MEDS ORDERED: NITROGLYCERIN 0.4 MG SL TAB SL PRN (22:00)
[2017-12-19] MEDS ORDERED: ACETAMINOPHEN 325 MG TAB PO PRN (22:00)
[2017-12-19] MEDS ORDERED: TEMAZEPAM 15 MG CAP PO PRN (22:00)
[2017-12-19] MEDS: METOPROLOL TARTRATE 50 MG TAB PO SCH (23:17)
[2017-12-20] MEDS ORDERED: LEVOTHYROXINE SODIUM 50 MCG TAB PO SCH (07:00)
[2017-12-20 07:02] LABS: Basophils # (auto) 0 uL; Basophils % (auto) 0.6 % (0.0-2.0); Eosinophils # (auto) 0.1 uL; Hematocrit 35.9 % (36.0-46.0); Hemoglobin 12.1 g/dL (12.2-16.2); Lymphocytes # (auto) 0.7 uL; Lymphocytes % (auto) 20.5 % (10.0-50.0); Mean Corpuscular Hemoglobin 30.9 pg (28.0-32.0); Mean Corpuscular Hgb Conc. 33.8 g/dL (32.0-36.0); Mean Corpuscular Volume 91.6 fL (80.0-100.0); Monocytes # (auto) 0.4 uL; Monocytes % (auto) 11.8 % (0.0-12.0); Neutrophils # (auto) 2.4 uL; Neutrophils % (auto) 65.1 % (37.0-80.0); Platelet Count (auto) 98 10^3/uL (140-450); Red Blood Cells 3.92 10^6/uL (4.0-5.20); Red Cell Distribution Width 14.8 % (11.8-14.3); White Blood Cell 3.6 10^3/uL (4.4-10.8)
[2017-12-20 07:14] LABS: Prothrombin Time 43.3 sec (9.27-12.13)
[2017-12-20 07:17] LABS: INR 4.4 (0.9-1.15)
[2017-12-20 08:03] LABS: Albumin 3.2 g/dL (3.4-5.0); BUN/Creatinine Ratio 19.8; Calcium 8.7 mg/dL (8.5-10.1); Potassium 3.9 mmol/L (3.5-5.1)
[2017-12-20 08:05] LABS: Bilirubin, Total 0.9 mg/dL (0.2-1.0); Total Protein 5.9 g/dL (6.4-8.2)
[2017-12-20] MEDS ORDERED: FUROSEMIDE 20 MG TAB PO SCH (10:00)
[2017-12-20] MEDS ORDERED: AMIODARONE HCL 200 MG TAB PO SCH (10:00)
[2017-12-20] MEDS: METOPROLOL TARTRATE 50 MG TAB PO SCH ×2 (10:00→21:15)
[2017-12-20] MEDS ORDERED: ISOSORBIDE MONONITRATE 60 MG TAB PO SCH (10:00)
[2017-12-20] MEDS ORDERED: PANTOPRAZOLE 40 MG TAB PO SCH (10:00)
[2017-12-20] MEDS ORDERED: CLOPIDOGREL BISULFATE 75 MG TAB PO SCH (10:00)
[2017-12-20 12:00] VITALS: BP 112/63
[2017-12-20 13:00] VITALS: BP 112/63
[2017-12-20] MEDS ORDERED: CYANOCOBALAMIN 500 MCG TAB PO ONE (14:45)
[2017-12-20 17:00] VITALS: BP 109/65
[2017-12-20 22:00] VITALS: BP 120/75
[2017-12-21] MEDS ORDERED: CYANOCOBALAMIN 500 MCG TAB PO SCH (10:00)
== END 2017-12-21 01:30 | disposition short-term general hospital (02) | DRG 314 ==
LOC: ER 18:37 → EDBD 18:37 → TELE 18:38 → TELE-CENTR 12-20 10:27
PROVIDERS: ADMIT Nurse Practitioner; ATTEND Nurse Practitioner
PROC: 4B02XTZ Measurement of Cardiac Defibrillator, External Approach (ICD-10-PCS; principal; 2017-12-20)
DX: T82.119A Breakdown (mechanical) of unspecified cardiac electronic device, initial encounter (principal); G93.41 Metabolic encephalopathy; D68.69 Other thrombophilia; I48.92 Unspecified atrial flutter; I50.42 Chronic combined systolic (congestive) and diastolic (congestive) heart failure; D61.818 Other pancytopenia; D68.9 Coagulation defect, unspecified; D69.6 Thrombocytopenia, unspecified; E03.9 Hypothyroidism, unspecified; E78.5 Hyperlipidemia, unspecified; E87.6 Hypokalemia; I11.0 Hypertensive heart disease with heart failure; G30.9 Alzheimer's disease, unspecified; F02.80 Dementia in other diseases classified elsewhere, unspecified severity, without behavioral disturbance, psychotic disturbance, mood disturbance, and anxiety; I35.0 Nonrheumatic aortic (valve) stenosis; E53.8 Deficiency of other specified B group vitamins; Z66 Do not resuscitate; F32.9 Major depressive disorder, single episode, unspecified; F41.9 Anxiety disorder, unspecified; F09 Unspecified mental disorder due to known physiological condition; I25.5 Ischemic cardiomyopathy; I48.91 Unspecified atrial fibrillation; K21.9 Gastro-esophageal reflux disease without esophagitis; Y71.2 Prosthetic and other implants, materials and accessory cardiovascular devices associated with adverse incidents; Z80.3 Family history of malignant neoplasm of breast; Z82.49 Family history of ischemic heart disease and other diseases of the circulatory system; Z88.6 Allergy status to analgesic agent; Z88.8 Allergy status to other drugs, medicaments and biological substances; Z83.3 Family history of diabetes mellitus; Z90.710 Acquired absence of both cervix and uterus; I25.2 Old myocardial infarction; Z95.1 Presence of aortocoronary bypass graft; Z95.810 Presence of automatic (implantable) cardiac defibrillator; Z90.49 Acquired absence of other specified parts of digestive tract; Z79.899 Other long term (current) drug therapy; Z79.82 Long term (current) use of aspirin
CPT/HCPCS: 36415; 71045; 80053; 83735; 83880; 84443; 84484; 85025; 85610; 85730; 87081; 93005; 93306; 94761